=== PATIENT | male | born 1965 | race Caucasian/White ===

== ENCOUNTER 2024-08-15 06:19 | Day surgery (SDC) | payer BC ==
[~2024-08-15 06:19] MED LIST: Midazolam 1 MG/ML 2 ML SDV IV ONE; Midazolam 1 MG/ML 2 ML SDV ONE; fentaNYL 100 MCG/2 ML SDV IV ONE; fentaNYL 100 MCG/2 ML SDV ONE
[2024-08-15] MEDS: Dextrose 5%-0.45% NaCl 1,000 ML IV SCH (06:36)
[2024-08-15] MEDS: fentaNYL 100 MCG/2 ML SDV IV ONE ×2 (07:46→07:47)
[2024-08-15] MEDS: Midazolam 1 MG/ML 2 ML SDV IV ONE ×2 (07:47→07:48)
== END 2024-08-15 09:13 | disposition home or self-care (01) ==
LOC: DL.ENDO 06:19
PROVIDERS: ATTEND Internal Medicine Gastroenterology
DX: K25.9 Gastric ulcer, unspecified as acute or chronic, without hemorrhage or perforation (principal); I10 Essential (primary) hypertension
CPT/HCPCS: 43239; J2250; J3010; J7799

== ENCOUNTER 2024-09-12 06:14 | Day surgery (SDC) | payer BC ==
[2024-09-12] MEDS: Dextrose 5%-0.45% NaCl 1,000 ML IV SCH (06:45)
[2024-09-12] MEDS: fentaNYL 100 MCG/2 ML SDV IV ONE ×2 (07:13→07:14)
[2024-09-12] MEDS: Midazolam 1 MG/ML 2 ML SDV IV ONE ×6 (07:15→07:21)
== END 2024-09-12 08:40 | disposition home or self-care (01) ==
LOC: DL.ENDO 06:14
PROVIDERS: ATTEND Internal Medicine Gastroenterology
DX: Z12.11 Encounter for screening for malignant neoplasm of colon (principal); D12.2 Benign neoplasm of ascending colon; I10 Essential (primary) hypertension
CPT/HCPCS: 45385; J2250; J3010; J7799